=== PATIENT | male | born 1975 | race Caucasian/White ===

== ENCOUNTER 2017-09-11 22:33 | Emergency (ER) | payer MEDICAID ==
[~2017-09-11] VITALS: Ht 177.8 cm; Wt 66.2 kg
[2017-09-11 23:23] VITALS: Ht 177.8 cm; Wt 66.2 kg
[2017-09-12 01:57] VITALS: BP 134/56
== END 2017-09-12 01:57 | disposition home or self-care (01) ==
LOC: ED 22:33
DX: S61.012A Laceration without foreign body of left thumb without damage to nail, initial encounter (principal); W26.8XXA Contact with other sharp object(s), not elsewhere classified, initial encounter; Y93.89 Activity, other specified; Y92.89 Other specified places as the place of occurrence of the external cause; Y99.8 Other external cause status